=== PATIENT | male | born 1955 | race Hispanic/Latino ===

== ENCOUNTER → 2016-04-23 | Outpatient (CLI) | payer MEDICAID, MEDICARE ==
--- NOTE | 2016-04-23 09:56 | RAD ---
EXAM DESCRIPTION: XR HAND 3 OR MORE VIEWS CLINICAL HISTORY: 60 y/o ,M, PAIN IN RIGHT HAND COMPARISON: None. 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 Osteophyte formation of the DIP joints of the 4th, 3rd and 2nd digits. No fracture noted. Electronically signed by: Angel Smith MD 04/23/2016 09:54
== END ==
LOC: RAD 08:27
PROVIDERS: ATTEND Orthopaedic Surgery
DX: M79.641 Pain in right hand (principal); M12.841 Other specific arthropathies, not elsewhere classified, right hand; M25.741 Osteophyte, right hand

== ENCOUNTER → 2016-11-12 | Outpatient (CLI) | payer MEDICAID, MEDICARE | END | disposition home or self-care (01) | LOC: GMAJ 10:34 | PROVIDERS: ATTEND Family Medicine | DX: Z12.5 Encounter for screening for malignant neoplasm of prostate (principal) ==

== ENCOUNTER → 2016-12-16 | Outpatient (CLI) | payer MEDICARE ==
--- NOTE | 2016-12-16 15:42 | CT ---
EXAM DESCRIPTION: Head CLINICAL HISTORY: DIZZINESS AND GIDDINESS COMPARISON: None available TECHNIQUE: Non contrast cranial CT This exam was performed according to our departmental dose-optimization program, which includes automated exposure control, adjustment of the mA and/or kV according to patient size and/or use of iterative reconstruction technique. FINDINGS: Ventricles and sulci are unremarkable. There is no hemorrhage or mass. There are no white matter abnormalities detected. The calvarium is unremarkable. The visualized paranasal sinuses and the mastoids are clear. IMPRESSION: 1. Normal noncontrast CT evaluation of the head. Electronically signed by: Augustine El MD 12/16/2016 3:40 PM CDT
--- NOTE | 2016-12-17 08:23 | US ---
EXAM DESCRIPTION: Carotid Duplex CLINICAL HISTORY: 61 years,Male,DIZZINESS AND GIDDINESS COMPARISON: None TECHNIQUE: Multiple real-time duplex Doppler ultrasound images were obtained the carotid arteries. FINDINGS: The right carotid system demonstrates severe intimal thickening. The common carotid artery demonstrates mild plaque at the bulb of less than 10 % diameter reduction.. The ICA demonstrates no significant stenosis. The left carotid system demonstrates severe intimal thickening. The common carotid artery demonstrates mild plaque surrounding the bulb area of less than 20% diameter reduction.. The internal carotid artery demonstrates no significant stenosis. The right carotid system demonstrates unremarkable waveforms. The right vertebral artery demonstrates antegrade flow. The left carotid system demonstrates unremarkable waveforms. The left vertebral artery demonstrates antegrade flow. On the right, the velocity in the proximal common carotid artery is 97 cm/sec. The distal internal carotid artery is 55 cm/sec. The ICA/CCA ratio is 0.6. On the left, the velocity in the proximal common carotid artery is 97 cm/sec. The period internal carotid artery is 56 cm/sec. The ICA/CCA ratio is 0.6. IMPRESSION: Severe intimal thickening bilaterally. Very mild less than 10% stenotic plaques in both carotid bulbs. Electronically signed by: Gilberto Baer MD 12/17/2016 8:22 AM CDT
== END | disposition home or self-care (01) ==
LOC: CT 09:28
PROVIDERS: ATTEND Family Medicine
DX: I25.10 Atherosclerotic heart disease of native coronary artery without angina pectoris (principal); R26.0 Ataxic gait; R42 Dizziness and giddiness

== ENCOUNTER → 2017-11-13 | Outpatient (CLI) | payer MEDICARE, OTHER | LOC: YCFC.O 09:01 | PROVIDERS: ATTEND Nurse Practitioner Family | DX: Z00.01 Encounter for general adult medical examination with abnormal findings (principal); I10 Essential (primary) hypertension; E78.2 Mixed hyperlipidemia; Z12.5 Encounter for screening for malignant neoplasm of prostate | CPT/HCPCS: 36415; 80053; 80061; 85025; G0103 ==

== ENCOUNTER → 2018-11-02 | Outpatient (CLI) | payer MEDICARE | LOC: GMAJ 11:06 | PROVIDERS: ATTEND Family Medicine | DX: Z12.5 Encounter for screening for malignant neoplasm of prostate (principal); I10 Essential (primary) hypertension; E78.00 Pure hypercholesterolemia, unspecified ==

== ENCOUNTER → 2020-01-10 | Outpatient (CLI) | payer MEDICARE | LOC: GMAJ 14:58 | PROVIDERS: ATTEND Family Medicine | DX: Z12.5 Encounter for screening for malignant neoplasm of prostate (principal); I10 Essential (primary) hypertension; E78.00 Pure hypercholesterolemia, unspecified ==

== ENCOUNTER 2020-02-24 05:56 | Day surgery (SDC) | payer MEDICARE ==
[2020-02-24] MEDS ORDERED: LACTATED RINGERS 1,000 ML ONE (06:38)
[2020-02-24] MEDS ORDERED: PROPOFOL 200 MG/20 ML VIAL IV ONE (07:00)
[2020-02-24] MEDS ORDERED: LIDOCAINE 1% 10 ML VIAL INJ ONE (07:00)
[2020-02-24 08:33] VITALS: O2SAT 91
--- NOTE | 2020-02-24 09:35 | OP ---
DATE OF PROCEDURE: 02/24/20 PREOPERATIVE DIAGNOSIS: 1. History of colonic polyps. POSTOPERATIVE DIAGNOSIS: 1. History of colonic polyps. PROCEDURE: 1. Colonoscopy with polypectomy x2 in the distal rectum. SURGEON: Ricky Diaz MD ANESTHESIA: General. FINDINGS: Mucosal surfaces were normal. There was no significant diverticulosis. Two small polyps were seen in the very distal rectum. COMPLICATIONS: None. ESTIMATED BLOOD LOSS: None. PLAN: Discharge. INDICATION: As stated. PROCEDURE: General anesthesia was induced in the lateral position. Digital rectal exam showed both internal and external hemorrhoids, non-thrombosed. The colonoscope was inserted and passed to the cecum as identified by the appendiceal orifice and ileocecal valve. Upon withdrawal, there was an adequate prep. The mucosal surfaces appeared normal throughout. No polyps were seen until the very distal rectum and two small polyps were excised. No other abnormalities were seen. The colon was desufflated. He was taken to Recovery to be discharged. #[id number] cc: Ricky Pang MD [facility]
[2020-02-24 09:44] VITALS: BP 111/67; TEMP 97.3
== END 2020-02-24 09:58 | disposition home or self-care (01) ==
LOC: AMB 05:56
PROVIDERS: ATTEND Surgery
DX: K62.1 Rectal polyp (principal); K64.4 Residual hemorrhoidal skin tags; K64.8 Other hemorrhoids; I10 Essential (primary) hypertension; I25.10 Atherosclerotic heart disease of native coronary artery without angina pectoris; E78.00 Pure hypercholesterolemia, unspecified; G47.30 Sleep apnea, unspecified; Z86.010 Personal history of colon polyps; Z96.653 Presence of artificial knee joint, bilateral; Z79.82 Long term (current) use of aspirin; Z79.899 Other long term (current) drug therapy
CPT/HCPCS: 00811; 45380; 88305; J3490; J7120